=== PATIENT | male | born 1985 | race Caucasian/White ===

== ENCOUNTER 2016-09-07 21:52 | Emergency (ER) | payer OTHER ==
[~2016-09-07] VITALS: Ht 180.3 cm; Wt 98.9 kg
[2016-09-07 22:22] VITALS: BP 131/78
--- NOTE | 2016-09-08 00:20 | NUR ---
PT TAKEN TO [facility]
--- NOTE | 2016-09-08 00:26 | NUR ---
PATIENT PRESENTS TO ED WITH DUE TO BLOOD IN URINE . PT STATES IT HAPPENS TWICE YESTERDAY AND THIS MORNING. DENIES N/V/D; SKIN IS PINK/WARM/DRY; AAOX4 WITH EVEN AND STEADY GAIT; LUNGS CLEAR BL; HR EVEN AND REGULAR; PT DENIES ANY FEVER, CP, SOB, OR COUGH AT THIS TIME; PATIENT STATES PAIN OF 0/10 AT THIS TIME; PATIENT SITTING IN CHAIR AT THIS TIME.PT AAO, NO DISTRESS NOTED ,NO ABDOMINAL DISTENTION NOTED, LAST BM 09/07/16
--- NOTE | 2016-09-08 00:35 | NUR ---
RELAYED TO DR. VERDIN RESULT OF URINE DIPSTICK
--- NOTE | 2016-09-08 00:42 | NUR ---
Dr. Flores evaluating patient
[2016-09-08 00:48] VITALS: BP 128/72
--- NOTE | 2016-09-08 00:48 | NUR ---
Patient discharged with v/s stable. Written and verbal after care instructions given and explained. Patient verbalized understanding. Ambulatory with steady gait. All questions addressed prior to discharge. Advised to follow up with PMD.
== END 2016-09-08 00:48 | disposition home or self-care (01) ==
LOC: MED 21:52
DX: R31.9 Hematuria, unspecified (principal); R30.9 Painful micturition, unspecified